=== PATIENT | female | born 1975 | race Caucasian/White ===

== ENCOUNTER 2018-10-08 18:47 | Emergency (ER) | payer BC ==
[~2018-10-08] VITALS: Ht 175.3 cm; Wt 77.1 kg
== END 2018-10-08 22:42 | disposition home or self-care (01) ==
LOC: ER 18:47
DX: S52.322A Displaced transverse fracture of shaft of left radius, initial encounter for closed fracture (principal); W18.09XA Striking against other object with subsequent fall, initial encounter; Y93.89 Activity, other specified; Y92.89 Other specified places as the place of occurrence of the external cause; Y99.8 Other external cause status